=== PATIENT | female | born 1975 | race Caucasian/White ===

== ENCOUNTER 2017-10-17 07:21 | Observation (INO) | payer OTHER ==
[2017-10-17] MEDS ORDERED: KETOROLAC 30 MG/1 ML SDV IVP ONE (07:29)
[2017-10-17] MEDS ORDERED: DEXAMETHASONE 10 MG/ML VIAL IVP ONE (07:29)
[2017-10-17] MEDS ORDERED: NALOXONE HCL 0.4 MG/ML INJ IVP PRN ×3 (07:29→08:26)
[2017-10-17] MEDS ORDERED: PROTAMINE SULFATE 50 MG/5 ML VIAL IVP PRN (07:29)
[2017-10-17] MEDS ORDERED: FLUMAZENIL 0.5 MG/5 ML MDV IVP PRN (07:29)
[2017-10-17] MEDS ORDERED: MIDAZOLAM 2 MG/2 ML VIAL IVP PRN (07:29)
[2017-10-17] MEDS ORDERED: fentaNYL 100 MCG/2 ML INJ IVP PRN (07:29)
[2017-10-17] MEDS ORDERED: HEPARIN 10,000 UNIT/10 ML MDV (1,000 UNIT/ML) IVP PRN (07:29)
[2017-10-17] MEDS ORDERED: SCOPOLAMINE HYDROBROMIDE 1 MG/3 DAYS PATCH TD ONE (07:29)
[2017-10-17] MEDS ORDERED: GLUCAGON HCL 1 MG VIAL IVP PRN (07:29)
[2017-10-17] MEDS ORDERED: ALTEPLASE 2 MG VIAL IVP PRN (07:29)
[2017-10-17] MEDS ORDERED: MEPERIDINE 25 MG/ML SYR IVP PRN (07:29)
[2017-10-17] MEDS ORDERED: NS 1,000 ML IV ONE (07:29)
[2017-10-17] MEDS ORDERED: methylPREDNISolone SOD SUCC 125 MG/2 ML VIAL IVP ONE (07:45)
[2017-10-17] MEDS ORDERED: HYDROmorphONE/DILAUDID 6 MG/30 ML PCA IV PRN ×2 (08:17→08:26)
[2017-10-17] MEDS ORDERED: diphenhydrAMINE 25 MG CAP PO PRN (08:26)
[2017-10-17] MEDS ORDERED: KETOROLAC 15 MG/1 ML SDV ONE (09:07)
--- NOTE | 2017-10-17 09:15 | PDGENHP ---
History & Physical Chief Complaint: UTERINE FIBROIDS History of Present Illness: SYMPTOMATIC UTERINE FIBROIDS. Pertinent Past, Social, Family History: HEAVY MENSTRATIOON. NO OTHER SURGERIES. NONSMOKER. Relevant Physical Exam: STOPPED HORMONES Cardiorespiratory Assessment: RRR, CTA
--- NOTE | 2017-10-17 09:16 | PDPROPOC ---
Sedation Plan of Care Sedation Plan of Care: vital signs stable, mental status noted, patient educated of risks, benefits, alternatives, patient can tolerate sedation ASA Classification: ASA 1 Planned drugs: fentanyl, midazolam Mallampati Score: Class 2 Mallampati Reference Image: Patient passed 3-3-2 rule?: Yes
[2017-10-17] MEDS ORDERED: BUPIVACAINE 0.5% 30 ML SDV ONE (09:43)
[2017-10-17] MEDS ORDERED: LIDOCAINE 1% 300 MG/30 ML SDV ONE ×3 (09:44→11:47)
[2017-10-17] MEDS ORDERED: IOPAMIDOL (ISOVUE-300) 100 ML BTL ONE ×2 (10:10→11:46)
[2017-10-17] MEDS ORDERED: fentaNYL 100 MCG/2 ML INJ ONE ×2 (10:32→10:51)
[2017-10-17] MEDS ORDERED: MIDAZOLAM 2 MG/2 ML VIAL ONE ×2 (10:32→10:51)
[2017-10-17] MEDS ORDERED: BISACODYL 10 MG SUPP PR PRN (11:34)
[2017-10-17] MEDS ORDERED: oxyCODONE IR 5 MG TAB PO PRN (11:34)
[2017-10-17] MEDS ORDERED: LACTULOSE 20 GM/30 ML UDCUP PO PRN (11:34)
[2017-10-17] MEDS ORDERED: MAGNESIUM HYDROXIDE 30 ML UDCUP PO PRN (11:34)
[2017-10-17] MEDS ORDERED: POLYETHYLENE GLYCOL 3350 17 GM PKT PO PRN (11:34)
--- NOTE | 2017-10-17 11:34 | PDRADPN ---
Radiology Procedure Note Date of Procedure: 10/17/17 Radiologist: Nicole Ronquillo Anesthesia: IV Sedation Pre-op Diagnosis: HEAVY MENSTRUATION Post-op Diagnosis: SAME Indication: SYMTOMATIC FIBROIDS Procedure: UFE, HYPOGASTRIC NERVE BLOCK Finding(s): VERY LARGE FIBROID UTERUS EMBOLIZED Inf/Abcess present in the surg proc area at time of surgery?: No Complications: NONE
[2017-10-17] MEDS ORDERED: NS 1,000 ML IV SCH (11:45)
[2017-10-17] MEDS: KETOROLAC 30 MG/1 ML SDV IVP SCH ×2 (15:03→20:38)
[2017-10-17] MEDS: ONDANSETRON 4 MG/2 ML VIAL IVP PRN ×3 (15:51→23:55)
--- NOTE | 2017-10-17 18:41 | SOAPPROG ---
SOAP Progress Note Assessment/Plan: Assessment: Routine post UFE pain management. Hypogastric block hasn't seem to help patient. Malloy out, but urinated naturally x 2 Plan: 1. 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 Encouraged po intake so that she can take some oral pain meds. 10/17/17 18:38 Subjective: Having significant pain. 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 Had emesis. Objective: Vital Signs Temp Pulse Resp BP Pulse Ox 37.1 C 83 17 107/73 98 10/17/17 17:25 10/17/17 17:25 10/17/17 17:25 10/17/17 17:25 10/17/17 17:25 10/16/17 10/17/17 10/18/17 05:59 05:59 05:59 Intake Total 900 Output Total 1100 Balance -200 Abd soft. Heating pad on. RT groin without hematoma. ICD10 Worksheet Patient Problems: Problems Problem Status Onset Dysfunctional uterine bleeding Acute Uterine fibroid Acute - ICD10 Problem Qualifiers (1) Uterine fibroid Qualifiers: Uterine leiomyoma location: intramural and submucous Qualified Code(s): D25.1 - Intramural leiomyoma of uterus; D25.0 - Submucous leiomyoma of uterus; D25.0 - Submucous leiomyoma of uterus (2) Dysfunctional uterine bleeding
[2017-10-18] MEDS ORDERED: PROMETHAZINE HCL 25 MG/ML INJ IVP PRN (00:30)
[2017-10-18] MEDS ORDERED: morphINE PCA 30 MG/30 ML PCA IV PRN (00:30)
[2017-10-18] MEDS ORDERED: NALOXONE HCL 0.4 MG/ML INJ IVP PRN (00:30)
[2017-10-18] MEDS: KETOROLAC 30 MG/1 ML SDV IVP SCH ×2 (01:40→08:26)
[2017-10-18] MEDS: morphINE SR 15 MG TAB PO SCH ×2 (02:38→16:33)
[2017-10-18] MEDS: SENNOSIDES/DOCUSATE SODIUM TAB PO SCH ×2 (04:27→14:19)
[2017-10-18] MEDS ORDERED: levOFLOXACIN 500 MG/DEXTROSE 100 ML IV ONE (09:00)
--- NOTE | 2017-10-18 10:04 | SOAPPROG ---
SOAP Progress Note Assessment/Plan: Assessment: Routine post UFE pain management. Hypogastric block hasn't seem to help patient. Malloy out, but urinated naturally x 2 Plan: 1. 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 Encouraged po intake so that she can take some oral pain meds. 10/17/17 18:38 10/18/17 10:03 1. Wean OIL SALES AND SERVICE REP by transitioning to oral pain meds 2 D/C bladder scans 3. Need to change status to inpatient. Patient will not be able to be discharged within 23 hrs due to pain and nausea control issues 4. encourage ambulation. Subjective: Nausea is better with phenergan. Pain is better with morphine. Still having moderate cramps. Has been urinating good amount. Objective: Vital Signs Temp Pulse Resp BP Pulse Ox 36.7 C 72 18 124/74 H 93 10/18/17 08:10 10/18/17 08:10 10/18/17 08:10 10/18/17 08:10 10/18/17 08:10 10/17/17 10/18/17 10/19/17 05:59 05:59 05:59 Intake Total 900 Output Total 1650 500 Balance -750 -500 Appears much more comfortable compared to last night. ICD10 Worksheet Patient Problems: Problems Problem Status Onset Dysfunctional uterine bleeding Acute Uterine fibroid Acute - ICD10 Problem Qualifiers (1) Uterine fibroid Qualifiers: Uterine leiomyoma location: intramural and submucous Qualified Code(s): D25.1 - Intramural leiomyoma of uterus; D25.0 - Submucous leiomyoma of uterus; D25.0 - Submucous leiomyoma of uterus (2) Dysfunctional uterine bleeding
[2017-10-18] MEDS ORDERED: IBUPROFEN 600 MG TAB PO SCH (12:00)
--- NOTE | 2017-10-18 16:20 | SOAPPROG ---
SOAP Progress Note Assessment/Plan: Assessment: Routine post UFE pain management. Hypogastric block hasn't seem to help patient. Malloy out, but urinated naturally x 2 Plan: 1. 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 Encouraged po intake so that she can take some oral pain meds. 10/17/17 18:38 10/18/17 10:03 1. 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 Need to change status to inpatient. Patient will not be able to be discharged within 23 hrs due to pain and nausea control issues 4. encourage ambulation. 10/18/17 16:20 D/C home now. No need for inpatient status change. D/C instructions given to patient. 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 no n/v. wants to go home. Objective: Vital Signs Temp Pulse Resp BP Pulse Ox 36.9 C 80 16 131/88 H 94 10/18/17 12:00 10/18/17 12:00 10/18/17 12:00 10/18/17 12:00 10/18/17 12:00 10/17/17 10/18/17 10/19/17 05:59 05:59 05:59 Intake Total 900 Output Total 1650 500 Balance -750 -500 - Pending Discharge Pending Discharge Within 24 Hours: Yes Pending Discharge Date: 10/19/17 Pending Discharge Time: 11:00 ICD10 Worksheet Patient Problems: Problems Problem Status Onset Dysfunctional uterine bleeding Acute Uterine fibroid Acute - ICD10 Problem Qualifiers (1) Uterine fibroid Qualifiers: Uterine leiomyoma location: intramural and submucous Qualified Code(s): D25.1 - Intramural leiomyoma of uterus; D25.0 - Submucous leiomyoma of uterus; D25.0 - Submucous leiomyoma of uterus (2) Dysfunctional uterine bleeding
[2017-10-18 16:21] VITALS: BP 139/92
--- NOTE | 2017-10-26 20:07 | GDS ---
[f rep st] DISCHARGE SUMMARY ADMISSION DIAGNOSIS: Symptomatic uterine fibroids. DISCHARGE DIAGNOSIS: Symptomatic uterine fibroids. PROCEDURE PERFORMED: October 17, 2017, uterine artery embolization. HOSPITAL COURSE: Despite of inferior epigastric block, the patient had significant amount of discomf ort during the night of the hospital stay. This was moderately controlled by midday next day with na rcotic pain pump. 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 The patient eventually was able to be taken off IV pain meds, with her pain well controlled with oral pain meds. She was, at that point, discharged home. DISCHARGE INSTRUCTIONS: Written discharge instructions were given to the patient in detail, and disc ussed. The patient expressed understanding. DISCHARGE MEDICATIONS: In addition to the patient's routine at home medications, 2 prescriptions wer e given to the patient: Oxycodone 5 mg tablets, take 1 to 2 every 4 hours p.r.n. breakthrough pain, dispense #20. MS Contin 15 mg p.o. b.i.d. p.r.n. pain, dispense #10. DISCHARGE PLAN: Follow up with primary care physicians as previously scheduled. IR will call the malick moreno for followup post procedure. Otherwise, it is as clinically indicated. /[id number]/MODL
== END 2017-10-18 17:15 | disposition home or self-care (01) ==
LOC: FIMAGING 07:21 → F3E 11:34 → FOB 14:00
PROVIDERS: ADMIT Radiology Diagnostic Radiology; ATTEND Radiology Diagnostic Radiology
DX: G89.18 Other acute postprocedural pain (principal); D25.9 Leiomyoma of uterus, unspecified; N93.8 Other specified abnormal uterine and vaginal bleeding; R11.0 Nausea; Z91.041 Radiographic dye allergy status; Z91.013 Allergy to seafood
CPT/HCPCS: 36247; 37243; 75736; 99152; 99153; C1769; C1894; G0378; J1170; J1200; J1644; J1885; J1956; J2250; J2270; J2310; J2405; J2550; J2930; J3010; Q9967

== ENCOUNTER → 2017-12-22 | Outpatient (CLI) | payer OTHER | LOC: FIMAGING 15:01 | PROVIDERS: ATTEND Radiology Diagnostic Radiology | DX: D25.9 Leiomyoma of uterus, unspecified (principal); Z98.890 Other specified postprocedural states ==

== ENCOUNTER → 2017-12-27 | Outpatient (CLI) | payer OTHER | LOC: FIMAGING 16:00 | PROVIDERS: ATTEND Family Medicine | DX: Z12.31 Encounter for screening mammogram for malignant neoplasm of breast (principal) ==

== ENCOUNTER → 2018-05-16 | Outpatient (CLI) | payer OTHER | LOC: FIMAGING 16:58 | PROVIDERS: ATTEND Family Medicine | DX: M50.323 Other cervical disc degeneration at C6-C7 level (principal) ==